=== PATIENT | male | born 1945 | race Caucasian/White ===

== ENCOUNTER 2018-11-25 06:53 | Day surgery (SDC) | payer MEDICARE, BC ==
[2018-11-25 08:11] LABS: #Basophils 0.1 thou/uL (0.0-0.2); #Eosinphils 0.2 thou/uL (0.0-0.7); #Lymphocytes 1.1 thou/uL (1.20-3.40); #Monocytes 0.4 thou/uL (0.11-0.59); #Neutrophils 3.7 thou/uL (1.40-6.50); %Basophils 2.5 % (0.0-1.0); %Eosinophils 2.9 % (0.0-10.0); %Lymphocytes 20.4 % (21.0-51.0); %Monocytes 7.3 % (0.0-10.0); %Neutrophils 66.9 % (42.0-75.0); Hemoglobin 14.6 g/dL (14.0-18.0); Mean Corpuscular HGB CONC 33.6 g/dL (32.0-36.0); Mean Corpuscular Hemoglobin 31.8 pg (27.0-31.0); Mean Corpuscular Volume 94.6 fL (78.0-98.0); Mean Platelet Volume 7.1 fL (7.4-10.4); Platelet Count 186 thou/uL (130-400); RBC Distribution Width 11.4 % (11.5-14.5); White Blood Cell (WBC) Count 5.5 thou/uL (4.8-10.8)
[2018-11-25 08:13] LABS: INR-International Normal Ratio 0.9; PTT 28.7 SEC (22.9-36.1); Prothrombin Time 12.3 SEC (12.0-14.7)
[2018-11-25 08:25] LABS: Anion Gap 16 mmol/L (10-20); BUN (Urea Nitrogen) 12 mg/dL (8.4-25.7); Calc. Creatinine Clearance 0 mL/min (70-130); Calcium 9.1 mg/dL (7.8-10.44); Carbon Dioxide 23 mmol/L (23-31); Chloride 105 mmol/L (98-107); Estimated GFR-MDRD 82; Glucose 108 mg/dL (83-110); Sodium 140 mmol/L (136-145)
[2018-11-25] MEDS ORDERED: CEFAZOLIN 2 GM/50 ML BAG ONE (08:43)
[2018-11-25] MEDS ORDERED: Lidocaine 1% (PF) 30 ML VIAL ONE (09:11)
[2018-11-25] MEDS ORDERED: Fentanyl 100 MCG/2 ML VIAL ONE (09:14)
[2018-11-25] MEDS ORDERED: Propofol 500 MG/50 ML VIAL ONE (09:42)
[2018-11-25] MEDS ORDERED: HYDROcodone/Acetaminophen 5/325 mg Tablet ONE (11:03)
--- NOTE | 2018-11-25 12:32 | OP ---
DATE OF PROCEDURE: 11/25/2018 PREOPERATIVE DIAGNOSIS: Right carpal tunnel syndrome. POSTOPERATIVE DIAGNOSIS: Right carpal tunnel syndrome. PROCEDURES PERFORMED: 1. Right open carpal tunnel release. 2. Placement of short-arm volar splint, right upper extremity. CLOTHESPIN MACHINE OPERATOR: None. BLOOD LOSS: Minimal. COMPLICATIONS: None. ANESTHESIA: The patient had TIVA with local. DISPOSITION: The patient went to the recovery room in stable condition. INDICATIONS: This is a 73-year-old active male comes in complaining of numbness, tingling, and pain in his hand. It wakes him at night and he has marked severe carpal tunnel syndrome based on an EMG/NCV. At this time, he opted to have this released. DESCRIPTION OF PROCEDURE: After all appropriate consent forms were explained and signed, the patient was taken back to the operating room and at this time was given IV sedation. A well-padded tourniquet was placed on the right arm and the arm was then prepped and draped in the standard surgical fashion. The incision was then drawn out and infiltrated with plain lidocaine. Limb was exsanguinated and tourniquet taken up to 250 mmHg. At this time, using Loupe magnification, a 15 blade was used to incise down through skin. Bipolar cautery was used to coagulate any brisk venous bleeding. We then placed a small hemostat to protect the underlying median nerve and transected the transverse carpal ligament using multiple 15 blades as well as scissors. Once this was done, a small finger was inserted to palpate for any remaining bands. At this time, a moist Ray-Salomón sponge was placed into the wound. Tourniquet was let down and pressure was held. Bipolar cautery used to coagulate any brisk venous bleeding. The wound was then irrigated with saline solution and we then evaluated the nerve. The nerve was found to be significantly injected, the nerve was intact, there were no masses noted, and the underlying flexor tendons were in good condition. At this time, we irrigated and dried the wound. We then placed multiple nylon stitches to close the incision. A bulky sterile hand dressing and a small volar splint were then placed. The patient was then awakened and taken to recovery in stable condition. All counts were correct at the end of the case. The patient received preoperative IV antibiotics. Job ID: [id number]
[2018-11-25] MEDS ORDERED: Ondansetron PF 4 MG/2 ML Vial ONE (16:32)
[2018-11-25] MEDS ORDERED: PROPOFOL 200 MG/20 ML VIAL ONE (16:32)
--- NOTE | 2018-11-25 21:15 | EKG ---
Test Reason : PREOP Blood Pressure : / mmHG Vent. Rate : 066 BPM Atrial Rate : 234 BPM P-R Int : 000 ms QRS Dur : 110 ms QT Int : 400 ms P-R-T Axes : 000 -13 025 degrees QTc Int : 419 ms Atrial fibrillation Abnormal ECG When compared with ECG of 03-JAN-2004 05:45, Atrial fibrillation has replaced Sinus rhythm Vent. rate has decreased BY 34 BPM T wave inversion no longer evident in Lateral leads Confirmed by Sho HAWLEY ([id number]) on 11/25/2018 9:15:09 PM Referred By: MAGDALENARO Confirmed By:Sho HAWLEY
== END 2018-11-25 11:58 | disposition home or self-care (01) ==
LOC: SDC 06:53
PROVIDERS: ATTEND Orthopaedic Surgery
PROC: 01N50ZZ Release Median Nerve, Open Approach (ICD-10-PCS; principal; 2018-11-25)
DX: G56.01 Carpal tunnel syndrome, right upper limb (principal); I10 Essential (primary) hypertension; I48.91 Unspecified atrial fibrillation; Z79.01 Long term (current) use of anticoagulants; Z79.899 Other long term (current) drug therapy; Z88.7 Allergy status to serum and vaccine
CPT/HCPCS: 36415; 80048; 85025; 85610; 85730; 93005; 93010; J2001; J2405; J2704; J3010

== ENCOUNTER 2019-09-04 09:23 | Day surgery (SDC) | payer MEDICARE, BC ==
[2019-09-01 15:57] VITALS: BMI 31.8
[2019-09-04 10:48] LABS: #Eosinphils 0.3 thou/uL (0.0-0.7); #Lymphocytes 1.2 thou/uL (1.20-3.40); #Monocytes 0.5 thou/uL (0.11-0.59); #Neutrophils 4.5 thou/uL (1.40-6.50); %Basophils 0.2 % (0.0-1.0); %Eosinophils 4.2 % (0.0-10.0); %Lymphocytes 18.9 % (21.0-51.0); %Monocytes 7.7 % (0.0-10.0); %Neutrophils 68.9 % (42.0-75.0); Hemoglobin 14.5 g/dL (14.0-18.0); Mean Corpuscular HGB CONC 33.1 g/dL (32.0-36.0); Mean Corpuscular Hemoglobin 31.2 pg (27.0-31.0); Mean Corpuscular Volume 94.1 fL (78.0-98.0); Mean Platelet Volume 7.2 fL (7.4-10.4); Platelet Count 244 thou/uL (130-400); Red Blood Cell (RBC) Count 4.65 mill/uL (4.70-6.10); White Blood Cell (WBC) Count 6.6 thou/uL (4.8-10.8)
[2019-09-04 10:56] LABS: Prothrombin Time 13.2 SEC (12.0-14.7)
[2019-09-04] MEDS ORDERED: Lidocaine 1% (PF) 30 ML VIAL ONE (11:51)
[2019-09-04] MEDS ORDERED: HYDROcodone/Acetaminophen 5/325 mg Tablet ONE ×2 (13:24→13:25)
--- NOTE | 2019-09-04 15:54 | EKG ---
Test Reason : PREOP Blood Pressure : / mmHG Vent. Rate : 067 BPM Atrial Rate : 500 BPM P-R Int : 000 ms QRS Dur : 118 ms QT Int : 434 ms P-R-T Axes : 000 -11 034 degrees QTc Int : 458 ms Atrial fibrillation Non-specific intra-ventricular conduction delay Abnormal ECG Confirmed by AUTUMN TAI ([id number]) on 09/04/2019 3:54:01 PM Referred By: CARLOS ENRIQUE Confirmed By:AUTUMN TAI
--- NOTE | 2019-09-04 17:27 | OP ---
DATE OF PROCEDURE: 09/04/2019 PREOPERATIVE DIAGNOSIS: Left carpal tunnel syndrome. POSTOPERATIVE DIAGNOSIS: Left carpal tunnel syndrome. PROCEDURE PERFORMED: 1. Left open carpal tunnel release. 2. Placement of short-arm volar splint, left upper extremity. TRIMMING CASER: None. BLOOD LOSS: Minimal. COMPLICATIONS: None. ANESTHESIA: The patient had TIVA with local. TOURNIQUET TIME: DISPOSITION: The patient went to the recovery room in stable condition. INDICATIONS: This a 74-year-old male, who comes in complaining of numbness and tingling in the left hand. He was found to have significant carpal tunnel syndrome. At this time, he opted to have surgery. DESCRIPTION OF PROCEDURE: After all appropriate consent forms were explained and signed, the patient was taken back to the operating room and at this time was given IV sedation. A well-padded tourniquet was placed on the left arm and the arm was then prepped and draped in the standard surgical fashion. The incision was then drawn out and infiltrated with plain lidocaine. Limb was exsanguinated and tourniquet taken up to 250 mmHg. At this time, using Loupe magnification, a 15 blade was used to incise down through skin. Bipolar cautery was used to coagulate any brisk venous bleeding. We then placed a small hemostat to protect the underlying median nerve and transected the transverse carpal ligament using multiple 15 blades as well as scissors. Once this was done, a small finger was inserted to palpate for any remaining bands. At this time, a moist Ray-Salomón sponge was placed into the wound. Tourniquet was let down and pressure was held. Bipolar cautery used to coagulate any brisk venous bleeding. The wound was then irrigated with saline solution and we then evaluated the nerve. The nerve was found to be significantly injected, the nerve was intact, there were no masses noted, and the underlying flexor tendons were in good condition. At this time, we irrigated and dried the wound. We then placed multiple nylon stitches to close the incision. A bulky sterile hand dressing and a small volar splint were then placed. The patient was then awakened and taken to recovery in stable condition. All counts were correct at the end of the case. The patient received preoperative IV antibiotics. Job ID: [id number]
== END 2019-09-04 14:07 | disposition home or self-care (01) ==
LOC: SDC 09:23
PROVIDERS: ATTEND Orthopaedic Surgery
PROC: 01N50ZZ Release Median Nerve, Open Approach (ICD-10-PCS; principal; 2019-09-04)
DX: G56.02 Carpal tunnel syndrome, left upper limb (principal); I10 Essential (primary) hypertension; I48.91 Unspecified atrial fibrillation; Z88.7 Allergy status to serum and vaccine; Z98.890 Other specified postprocedural states
CPT/HCPCS: 85025; 85610; 93005; 93010; J0690; J2001